=== PATIENT | female | born 1975 | race Caucasian/White ===

== ENCOUNTER 2021-03-23 15:09 | Emergency (ER) | payer OTHER ==
[~2021-03-23 15:09] MED LIST: ASPIRIN EC81 M1 PO; BENAZEPRIL HCL20 MG PO; CERTAGEN1 EACH PO; CIPRO500 MG PO; JANUVIA50 MG PO; KLONOPIN0.5 MG PO; LIPITOR40 MG PO; LITHIUM CARBON450 MG PO; LOPRESSOR25 MG PO; METFORMIN HCL500 MG PO; NEURONTIN600 MG PO; NORCO 5-325 TA1 EACH PO; PEPCID AC20 MG PO; PERCOCET 5-3251 EACH PO; PRILOSEC20 MG PO; PROBIOTIC DIGE1 EACH PO; SYNTHROID50 MCG PO; XARELTO1 EACH PO; ZOFRAN8 MG PO
[2021-03-23] MEDS ORDERED: NAPROXEN500 MG PO (17:00)
[2021-03-23] MEDS ORDERED: BACLOFEN 10MG T10 MG PO (17:00)
== END 2021-03-23 17:20 | disposition home or self-care (01) ==
LOC: FER 15:09
DX: T14.8XXA Other injury of unspecified body region, initial encounter (principal); R07.81 Pleurodynia; M54.5 Low back pain; M25.551 Pain in right hip; I10 Essential (primary) hypertension; E11.9 Type 2 diabetes mellitus without complications; Z91.010 Allergy to peanuts; W18.09XA Striking against other object with subsequent fall, initial encounter; Y92.009 Unspecified place in unspecified non-institutional (private) residence as the place of occurrence of the external cause
CPT/HCPCS: 71101; 72100; 73502; 96372; J1100; J1885

== ENCOUNTER 2021-08-09 13:19 | Emergency (ER) | payer OTHER ==
[~2021-08-09 13:19] MED LIST changes: +BACLOFEN 10MG T10 MG PO; +NAPROXEN500 MG PO
[2021-08-09 15:40] LABS: BASOPHIL 0.4 % (0-2); EOSINOPHIL 6.7 % (0-5); HCT 37.3 % (37.0-47.0); HGB 11.8 g/dl (12.5-16.0); MCH 28.7 pg (25.0-31.0); MCHC 31.6 g/dL (32.0-36.0); MCV 90.8 fL (78.0-100.0); MONOCYTE 4.5 % (0-12); MPV 10.4 fL (6.0-9.5); NEUTROPHIL 80.1 % (41-80); NRBC 0; PLT 198 K/uL (150-400); RBC 4.11 M/uL (4.20-5.40); WBC 10.7 K/uL (4.0-10.5)
[2021-08-09 15:41] LABS: BILIRUBIN NEGATIVE (NEGATIVE); BLOOD TRACE-INTACT Ery/uL (NEGATIVE); CLARITY HAZY (CLEAR); COLOR YELLOW (YELLOW); GLUCOSE (U) NORMAL (NORMAL); LEUKOCYTES TRACE Leu/uL (NEGATIVE); NITRITE NEGATIVE (NEGATIVE); PROTEIN NEGATIVE (NEGATIVE); UROBILINOGEN 0.2 mg/dL (0.2-1.0)
[2021-08-09 15:52] LABS: BACTERIA 3+; URINARY RBC RARE
[2021-08-09 16:12] LABS: ALBUMIN 3.2 g/dL (3.4-5.0); BILIRUBIN - TOTAL 0.5 mg/dL (0.2-1.0); BUN/CREAT RATIO (CALC) 18.4 RATIO; C-REACTIVE PROTEIN 5.9 mg/dL (<=0.90); CREATININE 0.76 mg/dL (0.51-0.95); GLOBULIN (CALCULATION) 3.9 g/dL; MAGNESIUM 1.3 mg/dL (1.8-2.4); TOTAL PROTEIN 7.1 g/dL (6.4-8.2)
[2021-08-09] MEDS ORDERED: NAPROXEN500 MG PO (17:50)
[2021-08-09] MEDS ORDERED: CEPHALEXIN250 MG PO (17:50)
[2021-08-09] MEDS ORDERED: PHENERGAN25 M1 PO (17:50)
== END 2021-08-09 18:55 | disposition home or self-care (01) ==
LOC: FER 13:19
PROVIDERS: Emergency Medicine
DX: R51.9 Headache, unspecified (principal); N39.0 Urinary tract infection, site not specified; Z86.16 Personal history of COVID-19; Z20.822 Contact with and (suspected) exposure to COVID-19
CPT/HCPCS: 36415; 80053; 81001; 82728; 83735; 84145; 84484; 85025; 85379; 86140; 87076; 87088; 87186; J0696; J1170; J1885; J2405; J7030; U0002

== ENCOUNTER 2021-10-18 15:57 | Inpatient (IN) | payer OTHER ==
[~2021-10-18] VITALS: Ht 175.3 cm; Wt 143.5 kg
[~2021-10-18 15:57] MED LIST changes: +CEPHALEXIN250 MG PO; +PHENERGAN25 M1 PO
[2021-10-18 20:30] LABS: BASOPHIL 0.5 % (0-2); EOSINOPHIL 3.3 % (0-5); HCT 36.7 % (37.0-47.0); HGB 11.6 g/dl (12.5-16.0); LYMPHOCYTE 18.1 % (15-48); MCH 28.6 pg (25.0-31.0); MCHC 31.6 g/dL (32.0-36.0); MCV 90.4 fL (78.0-100.0); MONOCYTE 9.1 % (0-12); MPV 10.7 fL (6.0-9.5); NEUTROPHIL 68.6 % (41-80); NRBC 0; PLT 211 K/uL (150-400); RBC 4.06 M/uL (4.20-5.40); RDW 14.8 % (11.5-14.0); WBC 12.5 K/uL (4.0-10.5)
[2021-10-18 20:48] LABS: BILIRUBIN NEGATIVE (NEGATIVE); BLOOD 1+ Ery/uL (NEGATIVE); CLARITY CLEAR (CLEAR); COLOR YELLOW (YELLOW); GLUCOSE (U) NORMAL (NORMAL); LEUKOCYTES 3+ Leu/uL (NEGATIVE); NITRITE POSITIVE (NEGATIVE); PROTEIN 1+ mg/dL (NEGATIVE); UROBILINOGEN 0.2 mg/dL (0.2-1.0)
[2021-10-18 21:03] LABS: ALBUMIN 2.9 g/dL (3.4-5.0); BILIRUBIN - TOTAL 0.4 mg/dL (0.2-1.0); CREATININE 1.06 mg/dL (0.51-0.95); GLOBULIN (CALCULATION) 3.8 g/dL; POTASSIUM 4.1 mmol/L (3.5-5.1); TOTAL PROTEIN 6.7 g/dL (6.4-8.2)
[2021-10-18 21:05] LABS: URINARY WBC TNTC
[2021-10-18 21:06] LABS: BACTERIA 3+
[2021-10-18] MEDS ORDERED: GABAPENTIN600 MG PO (23:48)
[2021-10-18] MEDS ORDERED: DEPAKOTE250 MG PO (23:50)
[2021-10-18] MEDS ORDERED: COREG25 MG PO (23:51)
[2021-10-18] MEDS ORDERED: COREG12.5 MG PO (23:52)
[2021-10-18] MEDS ORDERED: HIPREX1 GM PO (23:53)
[2021-10-18] MEDS ORDERED: FEOSOL325 MG PO (23:54)
[2021-10-18] MEDS ORDERED: GLUCOTROL10 MG PO (23:54)
[2021-10-18] MEDS ORDERED: ASPIRIN EC81 MG PO (23:55)
[2021-10-18] MEDS ORDERED: CIPRO500 MG PO (23:55)
[2021-10-18] MEDS ORDERED: FISH OIL 1,0001 EACH PO (23:56)
[2021-10-19] MEDS ORDERED: OZEMPIC0.25 MG/0. SC (00:02)
[2021-10-19] MEDS ORDERED: NOVOLOG VI100 UNIT/1 SC (00:03)
[2021-10-19 08:00] LABS: BASOPHIL 0.5 % (0-2); EOSINOPHIL 4.1 % (0-5); HCT 31.3 % (37.0-47.0); HGB 9.8 g/dl (12.5-16.0); LYMPHOCYTE 35.3 % (15-48); MCH 27.8 pg (25.0-31.0); MCHC 31.3 g/dL (32.0-36.0); MCV 88.9 fL (78.0-100.0); MPV 10.3 fL (6.0-9.5); NEUTROPHIL 49.7 % (41-80); NRBC 0; PLT 168 K/uL (150-400); RBC 3.52 M/uL (4.20-5.40); RDW 14.7 % (11.5-14.0); WBC 10.2 K/uL (4.0-10.5)
[2021-10-19 08:47] LABS: BUN/CREAT RATIO (CALC) 16.1 RATIO; CREATININE 0.87 mg/dL (0.51-0.95); POTASSIUM 3.8 mmol/L (3.5-5.1)
[2021-10-20] MEDS ORDERED: DEPAKOTE250 MG PO (06:39)
[2021-10-21 06:55] LABS: HCT 30.1 % (37.0-47.0); HGB 9.4 g/dl (12.5-16.0); MCH 27.8 pg (25.0-31.0); MCHC 31.2 g/dL (32.0-36.0); MCV 89.1 fL (78.0-100.0); MPV 10.2 fL (6.0-9.5); RBC 3.38 M/uL (4.20-5.40); RDW 14.5 % (11.5-14.0)
[2021-10-21 07:12] LABS: BUN/CREAT RATIO (CALC) 11.4 RATIO; CREATININE 0.7 mg/dL (0.51-0.95); POTASSIUM 4.3 mmol/L (3.5-5.1)
[2021-10-21] MEDS ORDERED: ZOFRAN4 M1 PO (14:36)
[2021-10-21] MEDS ORDERED: CEFDINIR300 MG PO (14:36)
--- NOTE | 2021-10-21 16:37 | NUR ---
PT D/C TO HOME IV REMOVED DISCHARGE PAPER GONE OVER WITH PT. WITH PATIENT STATING SHE UNDERSTOOK D/C ORDERS. PT AWAITING RIDE HOME.
== END 2021-10-21 17:00 | disposition home or self-care (01) | DRG 872 ==
LOC: FER 15:57 → FMS 21:56
PROVIDERS: Hospitalist; Nurse Practitioner; Physician Assistant; ADMIT Internal Medicine
DX: A41.51 Sepsis due to Escherichia coli [E. coli] (principal); N10 Acute pyelonephritis; N17.9 Acute kidney failure, unspecified; Z68.42 Body mass index [BMI] 45.0-49.9, adult; I10 Essential (primary) hypertension; A41.59 Other Gram-negative sepsis; E11.9 Type 2 diabetes mellitus without complications; F31.9 Bipolar disorder, unspecified; E66.01 Morbid (severe) obesity due to excess calories; Z96.652 Presence of left artificial knee joint; F41.9 Anxiety disorder, unspecified; K21.9 Gastro-esophageal reflux disease without esophagitis; E03.9 Hypothyroidism, unspecified; D50.9 Iron deficiency anemia, unspecified; Z79.82 Long term (current) use of aspirin; Z79.84 Long term (current) use of oral hypoglycemic drugs; Z79.4 Long term (current) use of insulin; Z79.899 Other long term (current) drug therapy; Z90.710 Acquired absence of both cervix and uterus; Z90.49 Acquired absence of other specified parts of digestive tract; Z90.89 Acquired absence of other organs; Z98.890 Other specified postprocedural states; Z82.49 Family history of ischemic heart disease and other diseases of the circulatory system; Z87.440 Personal history of urinary (tract) infections; Z98.84 Bariatric surgery status
CPT/HCPCS: 36415; 80048; 80053; 81001; 82962; 83036; 83605; 85025; 87040; 87076; 87077; 87088; 87186; J0696; J1170; J1650; J2270; J2405; J7030; U0002

== ENCOUNTER 2021-10-23 19:57 | Emergency (ER) | payer OTHER ==
[~2021-10-23 19:57] MED LIST changes: +ASPIRIN EC81 MG PO; +CEFDINIR300 MG PO; +COREG12.5 MG PO; +COREG25 MG PO; +DEPAKOTE250 MG PO; +FEOSOL325 MG PO; +FISH OIL 1,0001 EACH PO; +GABAPENTIN600 MG PO; +GLUCOTROL10 MG PO; +HIPREX1 GM PO; +NOVOLOG VI100 UNIT/1 SC; +OZEMPIC0.25 MG/0. SC; +ZOFRAN4 M1 PO
[2021-10-23 22:54] LABS: BASOPHIL 0.7 % (0-2); BILIRUBIN NEGATIVE (NEGATIVE); BLOOD NEGATIVE Ery/uL (NEGATIVE); CLARITY CLEAR (CLEAR); COLOR YELLOW (YELLOW); EOSINOPHIL 6.9 % (0-5); GLUCOSE (U) NORMAL (NORMAL); HCT 36.6 % (37.0-47.0); HGB 11.9 g/dl (12.5-16.0); LEUKOCYTES NEGATIVE Leu/uL (NEGATIVE); LYMPHOCYTE 38.4 % (15-48); MCH 28.2 pg (25.0-31.0); MCHC 32.5 g/dL (32.0-36.0); MCV 86.7 fL (78.0-100.0); MPV 9.5 fL (6.0-9.5); NEUTROPHIL 46.4 % (41-80); NITRITE NEGATIVE (NEGATIVE); NRBC 0; PLT 271 K/uL (150-400); PROTEIN NEGATIVE (NEGATIVE); RBC 4.22 M/uL (4.20-5.40); RDW 14.3 % (11.5-14.0); UROBILINOGEN 0.2 mg/dL (0.2-1.0); WBC 10.7 K/uL (4.0-10.5); pH 6.5 (5.0-9.0)
[2021-10-23 23:11] LABS: BUN/CREAT RATIO (CALC) 14.9 RATIO; CREATININE 0.74 mg/dL (0.51-0.95); POTASSIUM 4.4 mmol/L (3.5-5.1)
[2021-10-24] MEDS ORDERED: ONDANSETRON ODT4 MG SL (00:52)
[2021-10-24] MEDS ORDERED: NORCO 5-325 TA1 EACH PO (00:52)
[2021-10-24] MEDS ORDERED: CYCLOBENZAPRINE10 MG PO (00:52)
== END 2021-10-24 01:08 | disposition home or self-care (01) ==
LOC: FER 19:57
PROVIDERS: Emergency Medicine
DX: R10.84 Generalized abdominal pain (principal); M54.50 Low back pain, unspecified; I10 Essential (primary) hypertension
CPT/HCPCS: 36415; 80048; 81003; 83605; 85025; 99284

== ENCOUNTER 2021-11-04 07:58 | Emergency (ER) | payer OTHER ==
[~2021-11-04 07:58] MED LIST changes: +CYCLOBENZAPRINE10 MG PO; +ONDANSETRON ODT4 MG SL
[2021-11-04 10:02] LABS: BILIRUBIN NEGATIVE (NEGATIVE); BLOOD 1+ Ery/uL (NEGATIVE); CLARITY CLEAR (CLEAR); COLOR YELLOW (YELLOW); GLUCOSE (U) NORMAL (NORMAL); LEUKOCYTES 3+ Leu/uL (NEGATIVE); NITRITE NEGATIVE (NEGATIVE); PROTEIN NEGATIVE (NEGATIVE); SPECIFIC GRAVITY <=1.005 (1.001-1.030); UROBILINOGEN 0.2 mg/dL (0.2-1.0); pH 6.5 (5.0-9.0)
[2021-11-04 10:19] LABS: BACTERIA 1+; URINARY WBC TNTC
[2021-11-04] MEDS ORDERED: AUGMENTIN 875-1 EACH PO (11:13)
[2021-11-04] MEDS ORDERED: LACTOBACILLUS1 EAC2 PO (11:13)
== END 2021-11-04 11:50 | disposition home or self-care (01) ==
LOC: FER 07:58
PROVIDERS: Internal Medicine
DX: N39.0 Urinary tract infection, site not specified (principal); E11.9 Type 2 diabetes mellitus without complications; E66.9 Obesity, unspecified; Z79.4 Long term (current) use of insulin; Z79.84 Long term (current) use of oral hypoglycemic drugs
CPT/HCPCS: 81001; 99283

== ENCOUNTER 2022-04-10 09:53 | Emergency (ER) | payer OTHER ==
[~2022-04-10 09:53] MED LIST changes: +AUGMENTIN 875-1 EACH PO; +LACTOBACILLUS1 EAC2 PO
[2022-04-10 10:53] LABS: BILIRUBIN NEGATIVE (NEGATIVE); BLOOD 2+ Ery/uL (NEGATIVE); COLOR YELLOW (YELLOW); GLUCOSE (U) NORMAL (NORMAL); LEUKOCYTES 3+ Leu/uL (NEGATIVE); NITRITE NEGATIVE (NEGATIVE); PROTEIN 1+ mg/dL (NEGATIVE); SPECIFIC GRAVITY <=1.005 (1.001-1.030); UROBILINOGEN 0.2 mg/dL (0.2-1.0)
[2022-04-10 11:02] LABS: CLARITY CLOUDY (CLEAR)
[2022-04-10 11:13] LABS: BACTERIA 2+; URINARY WBC TNTC
[2022-04-10] MEDS ORDERED: CIPRO500 MG PO (11:29)
== END 2022-04-10 12:08 | disposition home or self-care (01) ==
LOC: FER 09:53
PROVIDERS: Emergency Medicine
DX: N39.0 Urinary tract infection, site not specified (principal); I10 Essential (primary) hypertension; E11.9 Type 2 diabetes mellitus without complications; Z28.311 Partially vaccinated for COVID-19
CPT/HCPCS: 81001; 87088; 99283

== ENCOUNTER 2022-07-06 18:33 | Emergency (ER) | payer OTHER ==
[2022-07-06 20:49] LABS: BASOPHIL 0.8 % (0-2); EOSINOPHIL 3.7 % (0-5); HGB 13.2 g/dl (12.5-16.0); LYMPHOCYTE 34.9 % (15-48); MCH 28.8 pg (25.0-31.0); MCHC 32.2 g/dL (32.0-36.0); MCV 89.3 fL (78.0-100.0); MONOCYTE 6.1 % (0-12); NEUTROPHIL 54.2 % (41-80); NRBC 0; PLT 237 K/uL (150-400); RBC 4.59 M/uL (4.20-5.40); RDW 14.1 % (11.5-14.0); WBC 9.7 K/uL (4.0-10.5)
[2022-07-06 21:03] LABS: BILIRUBIN NEGATIVE (NEGATIVE); BLOOD NEGATIVE Ery/uL (NEGATIVE); CLARITY CLEAR (CLEAR); COLOR YELLOW (YELLOW); GLUCOSE (U) NORMAL (NORMAL); LEUKOCYTES NEGATIVE Leu/uL (NEGATIVE); NITRITE NEGATIVE (NEGATIVE); PROTEIN NEGATIVE (NEGATIVE); UROBILINOGEN 0.2 mg/dL (0.2-1.0)
[2022-07-06 21:06] LABS: ALBUMIN 3.2 g/dL (3.4-5.0); BILIRUBIN - TOTAL 0.2 mg/dL (0.2-1.0); BUN/CREAT RATIO (CALC) 15.4 RATIO; CREATININE 0.78 mg/dL (0.51-0.95); GLOBULIN (CALCULATION) 3.6 g/dL; POTASSIUM 4.3 mmol/L (3.5-5.1); TOTAL PROTEIN 6.8 g/dL (6.4-8.2)
[2022-07-06 21:11] LABS: BACTERIA TRACE; SQUAMOUS EPITHELIAL CELLS RARE; URINARY RBC RARE
[2022-07-06] MEDS ORDERED: HYDRALAZINE25 MG PO (21:14)
== END 2022-07-06 21:33 | disposition home or self-care (01) ==
LOC: FER 18:33
PROVIDERS: Emergency Medicine
DX: I10 Essential (primary) hypertension (principal); M54.50 Low back pain, unspecified; E11.9 Type 2 diabetes mellitus without complications; Z79.4 Long term (current) use of insulin
CPT/HCPCS: 36415; 80053; 81001; 84484; 85025; J1885